=== PATIENT | female | born 1965 | race African-American/Black ===

== ENCOUNTER 2017-01-19 01:06 | Emergency (ER) | payer BC ==
[2017-01-19] MEDS ORDERED: CYCLOBENZAPRINE HCL 10 MG TABLET PO ONE (03:23)
[2017-01-19] MEDS ORDERED: ACETAMINOPHEN 325 MG TABLET PO ONE (03:23)
--- NOTE | 2017-01-19 03:28 | RADIOLOGY REPORT (SQ) ---
EXAM DESCRIPTION: KNEE LEFT 4 VIEW COMPLETED DATE/TIME: 01/19/2017 2:41 am REASON FOR STUDY: PAIN . Fell from the ladder onto the knee. COMPARISON: None. NUMBER OF VIEWS: Four views. TECHNIQUE: AP, lateral, and both oblique radiographic images acquired of the left knee. LIMITATIONS: None. FINDINGS: MINERALIZATION: Normal. BONES: There is a mildly depressed comminuted fracture at the lateral tibial plateau with the fractur e line extending to the tibial spine. Displaced comminuted fracture at the proximal fibula. JOINT: Large effusion. SOFT TISSUES: No significant soft tissue swelling. No radio-opaque foreign body. IMPRESSION: Mildly depressed comminuted fracture at the left lateral tibial plateau with the fractur e line extending to the tibial spine. Displaced comminuted fracture at the proximal left fibula. La rge knee joint effusion. TECHNICAL DOCUMENTATION: JOB ID: [id number] [employer]- All Rights Reserved
--- NOTE | 2017-01-19 03:36 | ER Document Report ---
ED Extremity Problem, Lower - General Chief Complaint: Knee Pain Stated Complaint: FALL,LEFT LEG INJURY Time Seen by Provider: 01/19/17 02:31 Notes: Patient is a 51-year-old female who fell from a ladder approximately 4 foot up today landing on her left leg. Patient points to pain at the top of her tibia with pain radiating around the head of her fibula. She states that she has pain with bending her knee past 90 but otherwise denies any pain to palpation. Sensation and motor function intact below injury. He had a previous injury to this knee. TRAVEL OUTSIDE OF THE [place] IN LAST 30 DAYS: No - Related Data Allergies/Adverse Reactions: No Known Allergies Allergy (Verified 08/18/15 10:20) Past Medical History - Social History Smoking Status: Current Every Day Smoker Chew tobacco use (# tins/day): No Frequency of alcohol use: Social Drug Abuse: None Family History: Reviewed & Not Pertinent Patient has suicidal ideation: No Patient has homicidal ideation: No - Past Medical History Cardiac Medical History: Reports: Hx Hypertension Renal/ Medical History: Denies: Hx Peritoneal Dialysis Past Surgical History: Reports: Hx Tonsillectomy - Immunizations Hx Diphtheria, Pertussis, Tetanus Vaccination: Yes Review of Systems - Review of Systems Constitutional: No symptoms reported Musculoskeletal: See HPI -: Yes All other systems reviewed and negative Physical Exam - Vital signs Vitals: Temp Pulse Resp BP Pulse Ox 98.1 F 118 H 16 125/77 100 01/19/17 01:11 01/19/17 01:11 01/19/17 01:11 01/19/17 01:11 01/19/17 01:11 - General General appearance: Appears well, Alert In distress: None - Cardiovascular Pulses: Normal: Popliteal, Dorsalis pedis Normal capillary refill: Yes - Extremities Knee: Nontender, Joint effusion, Pain with ROM, Patellar tendon intact. No: Deformity, Dislocation, Drawer's test instability, Instability, Laceration Calf: Normal, Nontender Ankle: Normal Foot: Normal - Neurological Motor strength normal: LUE, RUE, LLE, RLE Sensory: Normal - Skin Skin Temperature: Warm Skin Moisture: Dry Skin Color: Normal Skin Turgor: Elastic Course - Re-evaluation Re-evalutation: 01/19/17 07:00 Patient is a 51-year-old female who presents with knee pain. Patient has a comminuted fracture of the proximal tibia and fibula. Patient placed in a knee immobilizer and given crutches. Discussed with patient to follow-up with orthopedics. - Vital Signs Vital signs: Temp Pulse Resp BP Pulse Ox 98.2 F 70 17 130/88 H 99 01/19/17 04:09 01/19/17 04:09 01/19/17 04:09 01/19/17 04:09 01/19/17 04:09 - Diagnostic Test Radiology reviewed: Image reviewed, Reports reviewed Discharge - Discharge Clinical Impression: Tibia/fibula fracture Condition: Good Disposition: HOME, SELF-CARE Instructions: Use of Crutches ([facility]), Ice & Elevation ([facility]), Fractured Tibia ( [facility]), Oral Narcotic Medication ([facility]) Prescriptions: Hydrocodone/Acetaminophen [[place] 5-325 mg Tablet] 1 tab PO Q4HP PRN #25 tablet PRN Reason: Ibuprofen [Motrin 800 mg Tablet] 800 mg PO Q8H PRN #30 tab PRN Reason: Referrals: LUIZ MATT MD [Primary Care Provider] - Follow up as needed ROSSY HUYNH MD [ACTIVE STAFF] - Follow up tomorrow (-Required follow up)
[2017-01-19 04:10] VITALS: BP 130/88
== END 2017-01-19 04:09 | disposition home or self-care (01) ==
LOC: ER 01:06
DX: S82.102A Unspecified fracture of upper end of left tibia, initial encounter for closed fracture (principal); S82.832A Other fracture of upper and lower end of left fibula, initial encounter for closed fracture; M25.562 Pain in left knee; W11.XXXA Fall on and from ladder, initial encounter; F17.200 Nicotine dependence, unspecified, uncomplicated
CPT/HCPCS: 99283